=== PATIENT | male | born 1930 | race Caucasian/White ===

== ENCOUNTER 2017-02-26 09:06 | Outpatient (CLI) | payer MEDICARE ==
[~2017-02-26] VITALS: Ht 175.3 cm; Wt 81.8 kg
--- NOTE | ~2017-02-26 | HEMODYNAMI ---
PATIENT:JOE GRAFF MEDICAL RECORD: [id number] : [birth year] LOCATION:[facility] ADMISSION DATE: 02/26/17 Generatedon:02/26/201715:03 Patient name: JOE GRAFF Patient #: [id number] SSN: D OB: 1930 Date of study: 02/26/2017 Page: Of Hemodynamic Procedure Report Patient Data Patient Demographics Procedure consent was obtained First Name: JOE Gender: Male Last Name: PRERNA : 1930 [facility] Initial: R Age: 87 year(s) Patient #: [id number] Race: Additional ID: [id number] Contact details Address: [address] [place] [address] rd State: [place] City: [place] Zip code: [address] Past Medical History History of disease Date Diagnosis Comments CAD PVD Allergies: No known allergies Admission Admission Data Admission Date: 02/26/2017 Admission Time: 9:06 Admit Source: Other Insurance Payor: Medicare Height (in.): 69 BSA: 1.98 (m2) Height (cm.): 175.26 BMI: 26.58 (kg/m2) Weight (lbs.): 180 Weight (kg.): 81.65 Medications upon Admission Medications Dosage Times Administered Last Remarks per Delivery Day Date and Time Clopidogrel Yes 02/26/2017 Plavix 0:00 Loaded Lab Results Lab Result Date: 02/26/2017 Lab Result Time: 0:00 Biochemistry Name Units Result Min Max CK-MB ng/ml 0.6 --(*---)-- 0 3.6 Creatinine mg/dl 1.6 --(----)-* 0.6 1.3 Creatinine l 65 --(*---)-- 21 215 Kinase Troponin l ng/ml 0.017 --(-*--)-- 0 0.06 CBC Name Units Result Min Max Hematocrit % 41.5 -*(----)-- 42 54 Hemoglobin g/dl 13.4 -*(----)-- 13.5 17.5 Procedure Procedure Types Cath Procedure Diagnostic Procedure LHC LHC w/Coronaries w/Grafts FFR/IVUS Intra-Coronary IVUS Initial Intra-Coronary IVUS Additional PCI Procedure Coronary Stent Initial Peripheral Cath Diagnostic Procedure Cath Peripheral Zawfh-Xtvngrd-Xwq-Off Procedure Description Procedure Date Procedure Date: 02/26/2017 Procedure Start Time: 14:27 Procedure End Time: 15:03 Procedure Staff Name Function Neftali Brambila MD Performing Physician Tomas Gray RT Scrub Dmitry Bernal RN Nurse Savannah Escudero RT Monitor Tomer Olmstead RT Scrub Procedure Data Cath Procedure Fluoroscopy Diagnostic fluoroscopy Total fluoroscopy Time: 7.7 time: 7.7 min min Diagnostic fluoroscopy Total fluoroscopy dose: dose: 1302 mGy 1302 mGy Contrast Material Contrast Material Type Amount (ml) Isovue 300 157 Entry Location Entry Primary Successful Side Size Upsize Upsize Entry Closure Succes sful Closure Location (Fr) 1 (Fr) 2 (Fr) Remarks Device Remarks Femoral Left 5 Fr 6 Fr Exoseal artery Short Estimated blood loss: 10 ml Diagnostic catheters Device Type Used For End Catheter Placement Medtronic Dexterity 5Fr LV Angiography Pigtail catheter (NO CHARGE) Medtronic Dexterity 5Fr Abdominal Pigtail catheter (NO aortogram with CHARGE) runoff Medtronic Dexterity 5Fr Left Coronary JL 4.0 catheter (NO Angiography CHARGE) Medtronic Dexterity 5Fr Internal mammary 3DRC catheter (NO CHARGE) arteriography Diagnostic Infinity 5Fr SVG Angiography AR 2 MOD catheter Diagnostic Infinity 5Fr SVG Angiography AR 2 MOD catheter Procedure Complications No complications Procedure Medications Medication Administration Route Dosage Oxygen NC 2 l/min Heparin Flush Bag added to field 2 bags (1000units/500ml NS) 0.9% NaCl I.V. 100 ml/hr Fentanyl I.V. 50 mcg Versed I.V. 1 mg Fentanyl I.V. 50 mcg Versed I.V. 1 mg Heparin Bolus I.V. 4000 units Hemodynamics Rest BSA: 1.98 (m2) HGB: 13.4 (g/dl) O2 Consumption: Estimated: 216.88 (ml/min) O2 Co nsumption indexed: Estimated:109.54 (ml/min/m) Heart Rate: 61 (bpm) Snapshots Pre Cath Intra NCS Post Cath Vital Signs Time Heart Resp SPO2 NIBP (mmHg) Rhythm Pain Sedation Rate (ipm) (%) Status Level (bpm) 13:10:17 56 21 100 137/63(109) NSR 0 (11) 10(A) , No pain 13:14:38 59 20 100 152/64(90) NSR 0 (11) 10(A) , No pain 13:19:04 62 20 100 146/60(109) NSR 0 (11) 10(A) , No pain 13:23:22 62 18 98 141/64(102) NSR 0 (11) 10(A) , No pain 13:27:42 62 17 98 155/67(119) NSR 0 (11) 10(A) , No pain 13:32:04 62 17 99 133/61(112) NSR 0 (11) 10(A) , No pain 13:36:24 61 18 99 148/57(105) NSR 0 (11) 10(A) , No pain 13:40:48 64 17 98 141/59(100) NSR 0 (11) 10(A) , No pain 13:45:08 59 18 98 143/65(112) NSR 0 (11) 10(A) , No pain 13:49:26 59 18 98 136/62(101) NSR 0 (11) 10(A) , No pain 13:53:46 59 17 97 147/62(106) NSR 0 (11) 10(A) , No pain 13:58:05 64 17 98 147/58(116) NSR 0 (11) 10(A) , No pain 14:02:29 59 18 98 136/62(97) NSR 0 (11) 10(A) , No pain 14:06:47 63 17 98 144/65(109) NSR 0 (11) 10(A) , No pain 14:11:09 61 17 98 144/57(104) NSR 0 (11) 10(A) , No pain 14:15:27 55 17 97 139/57(101) NSR 0 (11) 10(A) , No pain 14:20:28 60 17 94 159/62(114) NSR 0 (11) 9(A) , No pain 14:25:48 66 20 97 148/61(116) NSR 0 (11) 9(A) , No pain 14:30:04 74 19 98 148/76(100) NSR 0 (11) 9(A) , No pain 14:34:18 84 18 98 140/72(100) NSR 0 (11) 9(A) , No pain 14:38:36 85 17 98 137/69(105) NSR 0 (11) 9(A) , No pain 14:42:52 82 17 97 137/70(103) NSR 0 (11) 9(A) , No pain 14:47:04 77 17 98 124/62(95) NSR 0 (11) 9(A) , No pain 14:51:05 87 17 98 133/73(105) NSR 0 (11) 9(A) , No pain 14:55:01 No Cuff NSR 0 (11) 9(A) , No pain Medications Time Medication Route Dose Verified Delivered Reason Notes Effectiveness by by 13:12:12 Oxygen NC 2 Dmitry Dmitry Per physician l/min Gabe Bernal RN RN 13:12:31 Heparin Flush added 2 Dmitry Dmitry used for Bag to bags Gabe Bernal RN procedure (1000units/500ml field RN NS) 13:12:42 0.9% NaCl I.V. 100 Dmitry Dmitry Per physician ml/hr Gabe Bernal RN RN 14:16:00 Fentanyl I.V. 50 Dmitry Dmitry for sedation mcg Gabe Bernal RN RN 14:16:08 Versed I.V. 1 mg Dmitry Dmitry for sedation Gabe Bernal RN RN 14:20:43 Fentanyl I.V. 50 Dmitry Dmitry for sedation mcg Gabe Bernal RN RN 14:20:47 Versed I.V. 1 mg Dmitry Dmitry for sedation Gabe Bernal RN RN 14:46:30 Heparin Bolus I.V. 4000 Dmitry Dmitry for units Gabe Bernal RN anticoagulation digester operator helper Log Time Note 12:55:58 Tomas PARIS(R) (CV) sent for patient. Start room use. 12:55:59 Time tracking: Regular hours 12:56:02 Plan of Care:Hemodynamics will remain stable., Cardiac rhythm will remain stable., Comfort level will be maintained., Respiratory function will remain adequate., Patient/ family verbilizes understanding of procedure., Procedure tolerated without complication., Recovers from procedure without complications.. 12:57:39 Patient Height : 175.26 cm 12:57:41 Patient Weight : 81.65 kg 12:58:14 Admit Source: Other 12:58:18 Insurance Payor : Medicare 12:59:13 Lab Result : Troponin l 0.017 ng/ml 12:59:13 Lab Result : Hemoglobin 13.4 g/dl 12:59:13 Lab Result : Hematocrit 41.5 % 12:59:13 Lab Result : Creatinine 1.6 mg/dl 12:59:13 Lab Result : CK-MB 0.6 ng/ml 12:59:13 Lab Result : Creatinine Kinase 65 l 12:59:21 Patient received from Pre/Post Procedure Room to CCL 2 Alert and oriented. Tansferred to table in Supine position. 12:59:22 Warm blankets applied, and edson hugger turned on for patient comfort. 12:59:23 Correct patient and procedure confirmed by team. 12:59:24 Signed procedure consent form obtained from patient. 12:59:24 ECG and BP/O2 sat monitors applied to patient. 12:59:25 Full Disclosure recording started 13:09:09 Vital chart was started 13:09:41 Rhythm: sinus rhythm 13:09:54 H&P Date Dictated: 02/25/2017 Within 30 days and on chart., H&P Addendum completed by physician on day of procedure. (MUST COMPLETE FOR ALL OUTPATIENTS). 13:09:55 Pre-procedure instructions explained to patient. 13:09:55 Pre-op teaching completed and patient verbalized understanding. 13:09:56 Family in waiting room. 13:09:58 Patient NPO since Midnight. 13:10:05 Patient allergic to No known allergies 13:10:09 Is the patient allergic to Iodine/contrast media? No. 13:10:10 Is patient on blood thinner?Yes 13:10:12 ACC The patient was administered the following blood thiners within the last 24 hours: ACCPlavix 13:10:24 Patient diabetic? No. 13:10:28 Previous problem with sedation/anesthesia? No ? 13:10:30 Snore? Yes 13:10:30 Sleep apnea? Yes 13:10:31 Deviated septum? No 13:10:32 Opens mouth fully? Yes 13:10:33 Sticks out tongue? Yes 13:10:34 Airway obstruction? No ? 13:10:37 Dentures? No ? 13:11:38 Pre procedure: right dorsailis pedis pulse 1+ Palpable, but thready & weak; easily obliterated 13:11:41 Pre procedure: left dorsailis pedis pulse 1+ Palpable, but thready & weak; easily obliterated 13:11:43 Patient pain scale 0/10 ?. 13:11:51 IV patent on arrival in left hand with 0.9% NaCl at [facility]. 13:11:58 Lab results completed and on chart. 13:12:01 Bilateral groins area was prepped with chlora-prep and draped in sterile fashion 13:12:08 Alarms reviewed by R. N. 13:12:08 Sharps counted by scrub and verified by R.N. 13:12:12 Oxygen 2 l/min NC was administered by Dmitry Bernal RN; Per physician; 13:12:13 Acist Syringe opened to sterile field. 13:12:13 Bag Decanter opened to sterile field. 13:12:14 Medline Cath Pack opened to sterile field. 13:12:14 Terumo 5Fr Orofino Sheath opened to sterile field. 13:12:15 St Brock 260cm J .035 wire opened to sterile field. 13:12:16 Acist Hand Control opened to sterile field. 13:12:16 Acist Manifold opened to sterile field. 13:12:17 Tegaderm 4 x 4 opened to sterile field. 13:12:31 Heparin Flush Bag (1000units/500ml NS) 2 bags added to field was administered by Dmitry Bernal RN; used for procedure; 13:12:42 0.9% NaCl 100 ml/hr I.V. was administered by Dmitry Bernal RN; Per physician; 13:15:05 Baseline sample Acquired. 13:20:00 Zero performed for pressure channel P1 13:47:24 Tomas Gray relieved as scrub by Hector Olmstead. 13:50:04 Procedure type changed to Cath procedure, Diagnostic procedure, LHC, LHC w/Coronaries w/Grafts, FFR/IVUS, Intra-Coronary IVUS Initial, Intra-Coronary IVUS Additional, PCI procedure, Coronary Stent Initial, Peripheral Cath Diagnostic Procedure, Cath Peripheral, Hqmjr-Cgpyuyd-Vgo-Off 14:12:40 Final Timeout: patient, procedure, and site verified with staff and physician. All members of the team are in agreement. 14:12:43 Left groin site verified by team. 14:12:46 Physical assessment completed. ASA score P 2 - A patient with mild systemic disease as per Neftali Brambila MD. 14:12:49 Sedation plan: IV Moderate Sedation Versed, Fentanyl 14:16:00 Fentanyl 50 mcg I.V. was administered by Dmitry Bernal RN; for sedation; 14:16:08 Versed 1 mg I.V. was administered by Dmitry Bernal RN; for sedation; 14:20:43 Fentanyl 50 mcg I.V. was administered by Dmitry Bernal RN; for sedation; 14:20:47 Versed 1 mg I.V. was administered by Dmitry Bernal RN; for sedation; 14:26:56 Procedure started. 14:27:07 Local anesthetic to left femerol artery with Lidocaine 2% by Neftali Brambila MD.INITIAL ACCESS ONLY 14:27:50 A 5 Fr sheath was inserted into the Left Femoral artery 14:28:09 A Medtronic Dexterity 5Fr Pigtail catheter (NO CHARGE) was advanced over the wire and used for LV Angiography. 14:29:33 LV gram done using ELLSWORTH 14:29:37 Injector settings: Ml/sec: 10, Volume: 20., 14:29:44 A Medtronic Dexterity 5Fr Pigtail catheter (NO CHARGE) was advanced over the wire and used for Abdominal aortogram with runoff. 14:30:17 Catheter removed. 14:31:29 A Medtronic Dexterity 5Fr JL 4.0 catheter (NO CHARGE) was advanced over the wire and used for Left Coronary Angiography. 14:32:52 Catheter removed. 14:34:07 A Medtronic Dexterity 5Fr 3DRC catheter (NO CHARGE) was advanced over the wire and used for Internal mammary arteriography. to LAD 14:35:32 Catheter removed. 14:37:06 A Diagnostic Infinity 5Fr AR 2 MOD catheter was advanced over the wire and used for SVG Angiography.to Circ 14:38:06 A Diagnostic Infinity 5Fr AR 2 MOD catheter was advanced over the wire and used for SVG Angiography.to Diag 14:38:10 Merit BasixCompak Inflation Kit opened to sterile field. 14:38:11 Catheter removed. 14:38:16 Terumo 6Fr Orofino Sheath opened to sterile field. 14:38:21 Rollins Whisper J 300cm 0.014 guide wire opened to sterile field. 14:38:27 Cordis 6FR XB 4.0 guide catheter opened to sterile field. 14:39:07 [place] IVUS Catheter opened to sterile field. 14:39:20 Sheath upsized to a 6 Fr Short. 14:39:31 6 Fr XB 4.0 guide catheter was inserted over the wire 14:40:03 Guide Catheter removed. unable to cannulate vessel. 14:40:11 Cordis 6FR XBLAD 3.5 guide catheter opened to sterile field. 14:40:26 6 Fr XBLAD 3.5 guide catheter was inserted over the wire 14:42:02 Whisper wire advanced. 14:42:16 IVUS catheter advanced over wire. 14:42:40 IVUS pass to Circ lesion performed. 14:45:24 IVUS catheter removed over wire. 14:46:30 Heparin Bolus 4000 units I.V. was administered by Dmitry Bernal RN; for anticoagulation; 14:47:29 Inflation Number: 1 A Biofreedom 4.0 X 8 stent was prepped and advanced across the LMCA. The stent was deployed at 17 HILARIA for 0:07 (min:sec). 14:48:09 Stent catheter was removed intact over wire. 14:48:09 Wire removed. 14:48:10 Guide catheter removed. 14:48:18 Sheath removed intact; hemostasis achieved with Exoseal to the Left Femoral artery. 14:48:20 Procedure ended.(Physican Out) 14:48:40 Cordis 6Fr Exoseal opened to sterile field. 14:50:00 Fluoroscopy time 07.70 minutes. 14:50:07 Flurop Dose total: 1302 14:50:07 Fluoroscopy dose: 1302 mGy 14:50:11 Contrast amount:Isovue 300 157ml. 14:50:13 Sharps counted by scrub and verified by R.N. 14:50:14 Insertion/operative site no bleeding no hematoma. 14:50:17 Post-op/insertion site Left Femoral artery dressed using a 4 x 4 and Tegaderm. 14:50:22 Post left femerol artery:stable, clean and dry 14:50:24 Post Procedure Pulses reassessed and unchanged 14:50:27 Post-procedure physical assessment completed. ASA score P 2 - A patient with mild systemic disease as per Neftali Brambila MD. 14:50:38 Post procedure rhythm: unchanged. 14:50:41 Estimated blood loss: 10 ml 14:50:42 Post procedure instruction explained to patient.Patient verbalizes understanding. 14:50:43 Patient needs reinforcement of post procedure teaching. 14:50:49 Procedure Complication : No complications 14:50:51 See physician's report for complete and final results. 14:55:09 Procedure and supply charges have been captured, reviewed, submitted and are correct. 14:55:10 Vital chart was stopped 14:55:14 Report given to PCU. 15:01:13 Vital chart was started 15:01:20 Vital chart was stopped 15:03:03 Patient transfered to Pre/Post Procedure Room with Stretcher. 15:03:06 Procedure ended. 15:03:06 Full Disclosure recording stopped 15:03:11 End room use (Document Last) Intervention Summary Intervention Notes Time ActionType Lesion and Equipment Action# Pressure Duration Attributes Used 14:47:29 Place stent LMCA Biofreedom 1 17 00:07 4.0 X 8 stent Device Usage Item Name Manufacture Quantity Catalog Hospital Part Current Minimal Lot# / Number Charge Number Stock Stock Serial# Code Acist Acist 1 36101 170746 375590 265991 20 Syringe Medical Systems Inc Bag Microtek 1 2002S 632211 80246 644352 5 [employer] Medline Cardinal 1 [id number] 012499 33105 267800 5 VideoBurst Terumo 5Fr Terumo 1 XUR049 000657 690611 023008 [address] St Brock 1 475300 038650 361360 915278 30 260cm J .035 wire Acist Hand Acist 1 64403 406195 342150 360122 5 Control Medical Systems Inc Acist Acist 1 32618 089009 217120 747352 5 Manifold Medical Systems Inc Tegaderm 4 3M 1 1626W 585953 063711 750353 5 x 4 Medtronic Medtronic 1 [id number] 869301 603495 5 Dexterity 5Fr Pigtail catheter (NO CHARGE) Medtronic Medtronic 1 [id number] 349447 503932 5 Dexterity 5Fr JL 4.0 catheter (NO CHARGE) Medtronic Medtronic 1 [id number] 990892 345915 5 Dexterity 5Fr 3DRC catheter (NO CHARGE) Diagnostic Cardinal 1 [id number] 769292 771786 105297 20 Infinity Health 5Fr AR 2 MOD catheter Merit Merit 1 [id number] 834214 855307 686607 15 BasixCompak Medical Inflation Kit Terumo 6Fr Terumo 1 [id number] 302328 815216 247916 40 Orofino Sheath Rollins Rollins 1 [id number] 517372 036830 543281 5 Whisper J Vascular 300cm 0.014 guide wire Cordis 6FR Cardinal 1 [id number] 559994 981334 663026 2 XB 4.0 Health guide catheter [place] 1 [id number] 944022 137202 414232 8 [place]ag[place] IVUS Catheter Cordis 6FR Cardinal 1 [id number] 069690 274736 659552 10 XBLAD 3.5 Health guide catheter Biofreedom Biosensors [address] [facility]2-8758 987977 955711 5 [id number] 4.0 X 8 [place] SA stent Cordis 6Fr Cardinal 1 EX600 362375 005461 004780 10 [facility] Rapportive Signature Audit [place] Stage Time Signature Unsigned Intra-Procedure 02/26/2017 [place] 3:03:22 PM Counts RT(R) Signatures Monitor : Savannah Signature : Counts RT Date : Time : [facility] [address] [place] [address]
[~2017-02-26 09:06] MED LIST: ASPIRIN EC81 MG PO; BETIMOL15 ML; BETIMOL15 ML EACH EYE; BETIMOL5 ML; CARAFATE1 G PO; CO Q-10100 MG PO; COZAAR25 MG PO; CRESTOR5 MG PO; DIOVAN40 MG PO; EZFE 200200 MG; ICAPS AREDS1 TAB.SA PO; MULTIPLE VITAMI1 TA1 PO; NITROQUICK0.4 MG SL; PLAVIX75 MG PO; PRILOSEC20 MG PO; TIMOLOL 0.25%; TRIGLIDE160 MG PO; ZOCOR40 MG PO; [UNRECOGNIZED DRUG - OTHER]
[2017-02-26] MEDS ORDERED: ZOLOFT25 MG PO (09:36)
[2017-02-26] MEDS ORDERED: XALATAN 0.0052.5 ML EACH EYE (09:37)
[2017-02-26] MEDS ORDERED: CARAFATE1 G PO (09:38)
[2017-02-26] MEDS ORDERED: PLAVIX75 MG PO (09:38)
[2017-02-26] MEDS ORDERED: CRESTOR10 MG PO (09:40)
[2017-02-26 09:41] VITALS: BP 133/54; BMI 26.6
[2017-02-26 09:51] LABS: BASOPHILS 0.3 % (0-2); EOSINOPHILS 3.3 % (0-7); HEMATOCRIT 41.5 % (42.0-54.0); HEMOGLOBIN 13.4 g/dL (13.5-17.5); IMMATURE GRANULOCYTES 0.3 % (0-5); LYMPHOCYTES 23.8 % (15-50); MCH 28.9 pg (26.0-34.0); MCHC 32.3 g/dL (31.0-37.0); MCV 89.4 fL (80.0-100.0); MEAN PLATELET VOLUME 10.6 fL (7.4-10.4); MONOCYTES 17.9 % (2-11); NEUTROPHILS 54.4 % (40-80); PLATELET COUNT 254 10x3/uL (130-400); RBC 4.64 10x6/uL (4.20-6.10); RDW 13.8 % (11.5-14.5); WBC 8.6 10x3/uL (4.8-10.8)
[2017-02-26 10:05] LABS: ANION GAP 10.5 mmol/L (8-16); CALCIUM 9.4 mg/dL (8.5-10.1); CARBON DIOXIDE 26.9 mmol/L (21.0-32.0); CREATININE - SERUM 1.6 mg/dL (0.6-1.3); POTASSIUM - SERUM 4.4 mmol/L (3.5-5.1)
[2017-02-26 10:33] LABS: CREATINE KINASE 65 UL (21-232)
[2017-02-26 10:34] LABS: CKMB 0.6 U/L (0.0-3.6)
[2017-02-26 11:19] LABS: TROPONIN-I < 0.017 ng/mL (0.000-0.060)
--- NOTE | 2017-02-26 16:17 | NUR ---
1530- LEFT GROIN CDI, NO HEMATOMA OR BLEEDING NOTED, SOFT TO TOUCH 1600-NO CHANGES NOTED TO LEFT GROIN, AT SIDE
--- NOTE | 2017-02-26 16:19 | NUR ---
1600-REPORT CALLED TO MED 2 NURSE, IV INTACT AND PATENT, VSS, DENIES NEEDS. TRANSPORT VIA STRETCHER
--- NOTE | 2017-02-26 16:45 | NUR ---
RECEIVED PT TO ROOM 2117 FROM CATH RECOVERY IN STABLE CONDITION VIA BED AAOX4 RESP UNLABORED O2 ON 1 LPM NC LT GROIN DRSG C/D/I AREA SOFT NO SIGNS OF BLEEDING
[2017-02-26 17:14] VITALS: BP 139/64; Ht 175.3 cm; Wt 81.8 kg
[2017-02-26 19:00] VITALS: BP 127/61
[2017-02-27 07:33] VITALS: BP 121/62
--- NOTE | 2017-02-27 07:58 | NUR ---
EKG AND LAB DRAW COMPLETED.
[2017-02-27 08:00] VITALS: BP 127/55
--- NOTE | 2017-02-27 09:58 | NUR ---
IV AND TELEMETRY DCD. DC PLANS GIVEN. UNDERSTANDING VOICED. ESCORTED TO CAT BY W/C.
--- NOTE | 2017-03-17 07:56 | OP ---
PATIENT NAME: JOE GRAFF MEDICAL RECORD: [id number] :[birth year] LOCATION:[facility] ADMISSION DATE: SURGEON: ROBI VAIL MD DATE OF OPERATION: 02/26/2017 PROCEDURES: 1. Aortofemoral runoff. 2. Abdominal aortography. INDICATION: Claudication and peripheral vascular disease. PROCEDURE IN DETAIL: After informed consent was obtained and after detailed explanation of risks, benefits as well as alternative therapies, the patient elected to proceed with angiogram and aortofemoral runoff. The right femoral area had a pre-existing sheath from coronary intervention. All catheters exchanged through this sheath. FINDINGS: Abdominal aortography was performed. The catheter was pulled down for aortofemoral runoff. Abdominal aortography reveals moderate diffuse disease. No dissection or aneurysm formation. No renal artery stenosis. RIGHT LEG: A. Iliac: The common internal and external iliacs have mild irregularities, but no flow-limiting stenosis. B. Femoral system: The common superficial and deep femoral have dsri-xs-npclmnca irregularities, but no flow-limiting stenosis. C. Popliteal and infrapopliteal vessels: The popliteal is patent; however, after this, there is severe diffuse disease at the infrapopliteal vessels with no real discernable runoff to the foot. LEFT LEG: A. Iliac: The common internal and external iliacs have moderate irregularities, but no flow-limiting stenosis. B. Femoral system: The common superficial and deep femoral have moderate irregularities, but no flow-limiting stenosis. C. Popliteal and infrapopliteal vessels: The popliteal is patent. Anterior tibial is totally occluded. Peroneal is diffusely diseased, but then appears to be totally occluded in the proximal vessel. Posterior tibial is as well totally occluded in the proximal vessel. OVERALL IMPRESSION: Severe infrapopliteal disease bilaterally. This is the etiology of the claudication, not amenable to transcatheter or surgical revascularization. TRANSINT:[id number] Voice Confirmation ID: [id number] DOCUMENT ID: [id number] ROBI VAIL MD at 0756 CC: [id number] DICTATION DATE: 03/15/17 1224 DIGITAL ACCOUNT DIRECTOR: 03/15/17 1636 DEP CLI 02/27/17 [place] [address]
--- NOTE | 2017-03-17 07:56 | OP ---
PATIENT NAME: JOE GRAFF MEDICAL RECORD: [id number] :[birth year] LOCATION:D.CAT ADMISSION DATE: SURGEON: ROBI VAIL MD DATE OF OPERATION: 02/26/2017 PROCEDURES: 1. PTCA stent, left circumflex. 2. Selective coronary angiography. 3. Left ventriculogram. 4. Vein graft angiography. 5. GLEASON angiography. INDICATION: Angina and coronary artery disease. PROCEDURE IN DETAIL: After informed consent was obtained and after detailed explanation of risks, benefits as well as alternative therapies, the patient elected to proceed with angiogram and angioplasty. The right femoral area was prepped and draped in normal sterile fashion. The right femoral artery was cannulated via modified Seldinger technique with placement of 6-Japanese sheath. All catheters exchanged through this sheath. FINDINGS: Left ventriculogram was performed in the standard 30-degree ELLSWORTH view, reveals preserved cardiac wall motion, ejection fraction 50%-55%. SELECTIVE CORONARY ANGIOGRAPHY: 1. Left main has a previously placed stent, this is patent. 2. Left anterior descending is totally occluded. 3. GLEASON to the LAD is widely patent. 4. Vein graft to the LAD diagonal was patent. The distal diagonal was diffusely diseased. 5. Left circumflex has previously placed stents extending from the left main stents into the proximal circumflex. There is an area confirmed by intravascular ultrasound to be 72% stenosed at the ostium of the circumflex. 6. The right coronary artery is totally occluded in the mid vessel. 7. No other grafts were located. PTCA STENT OF THE LEFT CIRCUMFLEX: The lesion is an 8-mm lesion in a 4.0 vessel. There is 72% stenosis by intravascular ultrasound. This was addressed with a 4.0 x 8 mm BioFreedom stent. Result was 0% residual stenosis. OVERALL IMPRESSION: Successful percutaneous transluminal coronary angioplasty stent of the left circumflex ostium going from 72% initial stenosis with МАРИЯ 3 flow before the intervention to 0% residual with МАРИЯ 3 flow after the intervention. TRANSINT:[id number] Voice Confirmation ID: [id number] DOCUMENT ID: [id number] OPERATIVE REPORT [id number] JOE GRAFF ROBI VAIL MD at 0756 CC: [id number] DICTATION DATE: 03/15/17 1222 COOLING TOWER OPERATOR: 03/15/17 1631 DEP CLI 02/27/17 [facility] [address] [place] [address]
== END 2017-02-27 10:07 | disposition home or self-care (01) ==
LOC: D.CATH 09:06 → D.M2 16:00 → D.CATH 02-27 10:07
PROVIDERS: Internal Medicine Interventional Cardiology
DX: I25.119 Atherosclerotic heart disease of native coronary artery with unspecified angina pectoris (principal); Z01.812 Encounter for preprocedural laboratory examination; Z00.6 Encounter for examination for normal comparison and control in clinical research program
CPT/HCPCS: 93459; C9600

== ENCOUNTER → 2017-07-23 08:07 | Outpatient (CLI) | payer MEDICARE ==
[2017-02-26 17:14] VITALS: BMI 26.6
[~2017-07-23 08:07] MED LIST changes: +CRESTOR10 MG PO; +XALATAN 0.0052.5 ML EACH EYE; +ZOLOFT25 MG PO
== END | disposition home or self-care (01) ==
LOC: D.CT 08:07
DX: R93.8 Abnormal findings on diagnostic imaging of other specified body structures (principal)